=== PATIENT | female | born 1985 | race Two or more races ===

== ENCOUNTER 2024-12-02 06:44 | Day surgery (SDC) | payer OTHER ==
[2024-11-25 10:39] VITALS: BP 122/83
[2024-11-25 10:43] LABS: BASO % 1.1 % (0.1-1.2); EOS # 0.21 (0.04-0.54); EOS % 3.8 % (0.7-7.0); LYMPH # 1.73 (1.18-3.74); LYMPH % 31.5 % (19.3-53.1); MEAN PLATELET VOLUME 10.00 fl (9.4-12.4); MONO # 0.43 (0.24-0.82); MONO % 7.8 % (4.7-12.5); NEUT # 3.06 (1.56-6.13); NEUT % 55.6 % (34.0-71.1); RED CELL DISTRIBUTION WIDTH 12.9 % (11.6-14.4)
[2024-11-25 10:51] LABS: URINE APPEARANCE Cloudy; URINE BILIRRUBIN Negative (NEGATIVE); URINE BLOOD Negative; URINE COLOR Yellow; URINE GLUCOSE Negative (NEGATIVE); URINE KETONE Negative (NEGATIVE); URINE LEUKOCYTE Large; URINE NITRATE Negative; URINE PROTEIN Negative (NEGATIVE); URINE UROBILINOGEN 0.2 E.U./dl
[2024-11-25 10:55] LABS: URINE EPITHELIAL CELLS 112.1 uL (0.0-38.8); URINE RBC 4.2 uL (0.0-20.8); URINE WBC 119.3 uL (0.0-23.2)
[2024-11-25 10:59] LABS: URINE BACTERIA > 9821.5 uL (0.0-1933)
[2024-11-25 11:00] LABS: URINE CAST 0.00 uL (0.0-1.40)
[2024-11-25 11:14] LABS: ALT/SGPT 31.0 U/L (12-78); AST/SGOT 12.0 U/L (15-37); BILIRUBIN TOTAL 0.32 mg/dL (0.3-1.2); BUN CREA RATIO 17.0 (7.0-25.0); CREATININE SERUM 0.63 mg/dL (0.55-1.02); GFR 105.2; GLOBULINA 3.4 G/DL (2.4-3.5); GLUCOSE FASTING 97.0 mg/dL (65-100); INR 0.94; OSMOLALITY SERUM 275.0 MOSM/KG (275-295)
[~2024-12-02] VITALS: Ht 154.9 cm; Wt 72.6 kg
[~2024-12-02 06:44] MED LIST: AMBIEN10 MG PO; MOTRIN IB200 MG PO; SUBOXONE 8 MG-1 EACH SL
[2024-12-02] MEDS ORDERED: LIDOCAINE HCL 1%/EPINEPHRINE 20ML VIAL IJ ONE (11:45)
[2024-12-02] MEDS ORDERED: CEFAZOLIN SODIUM 1,000 MG VIAL IV ONE (11:45)
[2024-12-02] MEDS ORDERED: CEPHALEXIN500 MG PO (12:08)
== END 2024-12-02 14:20 | disposition home or self-care (01) ==
LOC: CIR.AMB 06:44
PROVIDERS: ATTEND Otolaryngology Otology & Neurotology
DX: D37.030 Neoplasm of uncertain behavior of the parotid salivary glands (principal)